=== PATIENT | female | born 2005 | race Two or more races ===

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

== ENCOUNTER 2023-06-10 17:18 | Emergency (ER) | payer MEDICAID ==
[~2023-06-10] VITALS: Ht 167.6 cm; Wt 61.1 kg
[2023-06-10 18:27] VITALS: RESP 18; O2SAT 99
[2023-06-10 19:11] VITALS: BP 108/56; PULSE 62
[2023-06-10 19:12] VITALS: TEMP 97.4
[2023-06-10] MEDS ORDERED: IBUPROFEN 800 MG TAB PO ONE (19:15)
== END 2023-06-10 19:14 | disposition home or self-care (01) ==
LOC: ER 17:18
DX: M67.432 Ganglion, left wrist (principal); J45.909 Unspecified asthma, uncomplicated; F12.10 Cannabis abuse, uncomplicated
CPT/HCPCS: 73130

== ENCOUNTER 2023-12-09 19:25 | Emergency (ER) | payer MEDICAID, OTHER ==
[~2023-12-09] VITALS: Ht 167.6 cm; Wt 65.9 kg
[2023-12-09 19:42] VITALS: BP 123/59; PULSE 74; RESP 15; O2SAT 100
[2023-12-10 08:12] LABS: Hepatitis B Surface Antibody Positive (Negative)
[2023-12-10 08:25] LABS: Hepatitis B Surface Antigen Negative (Negative)
== END 2023-12-09 23:40 | disposition home or self-care (01) ==
LOC: ER 19:25
DX: K08.89 Other specified disorders of teeth and supporting structures (principal); Z53.21 Procedure and treatment not carried out due to patient leaving prior to being seen by health care provider; Z20.6 Contact with and (suspected) exposure to human immunodeficiency virus [HIV]
CPT/HCPCS: 36415; 86703; 86706; 86803; 87340

== ENCOUNTER 2024-03-03 18:12 | Emergency (ER) | payer SELFPAY ==
[~2024-03-03] VITALS: Ht 167.6 cm; Wt 71.0 kg
[2024-03-03 18:36] VITALS: BP 118/55; PULSE 70; RESP 16; O2SAT 100
== END 2024-03-03 22:17 | disposition left against medical advice (07) ==
LOC: ER 18:12
DX: S61.231A Puncture wound without foreign body of left index finger without damage to nail, initial encounter (principal); Z53.21 Procedure and treatment not carried out due to patient leaving prior to being seen by health care provider; X58.XXXA Exposure to other specified factors, initial encounter; Y93.89 Activity, other specified; Y92.89 Other specified places as the place of occurrence of the external cause; Y99.8 Other external cause status

== ENCOUNTER 2024-03-05 16:15 | Emergency (ER) | payer OTHER ==
[~2024-03-05] VITALS: Ht 167.6 cm; Wt 69.8 kg
[2024-03-05 17:09] VITALS: BP 123/69; PULSE 70; RESP 14; TEMP 97.5; O2SAT 97
[2024-03-07 08:13] LABS: Hepatitis B Surface Antibody Positive (Negative)
[2024-03-07 08:25] LABS: Hepatitis B Surface Antigen Negative (Negative)
== END 2024-03-05 17:34 | disposition home or self-care (01) ==
LOC: ER 16:15
DX: S61.233A Puncture wound without foreign body of left middle finger without damage to nail, initial encounter (principal); J45.909 Unspecified asthma, uncomplicated; Z88.8 Allergy status to other drugs, medicaments and biological substances; W46.0XXA Contact with hypodermic needle, initial encounter; Y93.89 Activity, other specified; Y92.89 Other specified places as the place of occurrence of the external cause; Y99.8 Other external cause status
CPT/HCPCS: 36415; 86703; 86706; 86803; 87340

== ENCOUNTER 2024-05-23 01:56 | Emergency (ER) | payer MEDICAID, OTHER ==
[~2024-05-23] VITALS: Ht 165.1 cm; Wt 64.5 kg
[2024-05-23 02:43] LABS: Basophils # (auto) 0.1 10 ^3/uL (0-0.2); Basophils % (auto) 0.4 % (0.0-2.0); Eosinophils # (auto) 0 10 ^3/uL (0-0.8); Eosinophils % (auto) 0.3 % (0.0-7.0); Hematocrit 45.4 % (36.0-46.0); Hemoglobin 15.1 g/dL (12.2-16.2); Lymphocytes # (auto) 0.7 10 ^3/uL (0.4-5.4); Lymphocytes % (auto) 4.4 % (10.0-50.0); Mean Corpuscular Hemoglobin 27.5 pg (28.0-32.0); Mean Corpuscular Hgb Conc. 33.2 g/dL (32.0-36.0); Mean Corpuscular Volume 82.7 fL (80.0-100.0); Monocytes # (auto) 0.6 10 ^3/uL (0-1.3); Neutrophils # (auto) 13.9 10 ^3/uL (1.6-8.6); Neutrophils % (auto) 90.9 % (37.0-80.0); Red Blood Cells 5.49 10^6/uL (4.0-5.20); Red Cell Distribution Width 14.3 % (11.8-14.3); White Blood Cell 15.3 10^3/uL (4.4-10.8)
[2024-05-23] MEDS: SODIUM CHLORIDE 0.9% 1,000 ML IV ONE ×2 (02:46→03:46)
[2024-05-23] MEDS: PANTOPRAZOLE 40 MG/10 ML VIAL INJ IV ONE (02:46)
[2024-05-23] MEDS: ONDANSETRON HCL 4 MG/2 ML VIAL IV ONE (02:46)
[2024-05-23 03:03] LABS: Alanine Aminotransferase 18 U/L (7-40); Alkaline Phosphatase 73 U/L (46-116); Anion Gap 8 (5-15); Aspartate Aminotransferase 19 U/L (13-40); BUN/Creatinine Ratio 10.8 (10.0-20.0); Blood Urea Nitrogen 10 mg/dL (9-23); Calcium 10.7 mg/dL (8.7-10.4); Carbon Dioxide 23 mmol/L (20-30); Chloride 110 mmol/L (98-107); Glucose 123 mg/dL (74-106); Potassium 4.2 mmol/L (3.5-5.1); Sodium 141 mmol/L (136-145)
[2024-05-23 03:04] LABS: Albumin 5.3 g/dL (3.2-4.8); Bilirubin, Total 0.8 mg/dL (0.2-1.0); Total Protein 8.4 g/dL (5.7-8.2)
[2024-05-23 03:17] LABS: Urine Bacteria FEW /hpf (None Seen); Urine Blood 3+ /uL (Negative); Urine Clarity Turbid (Clear); Urine Color Yellow (Yellow); Urine Hyaline Cast FEW /lpf (0 - 2); Urine Mucus FEW (None Seen); Urine Protein, UAD 2+ (Negative); Urine Specific Gravity 1.039 (1.001-1.035); Urine Urobilinogen 3 mg/dL (Negative); Urine WBC 66 /hpf (0 - 5); Urine pH 5.5 (5.0-9.0)
[2024-05-23 03:40] VITALS: BP 97/59; TEMP 98.6
[2024-05-23 03:43] VITALS: PULSE 64; RESP 18; O2SAT 99
[2024-05-23] MEDS: METOCLOPRAMIDE HCL 5MG/ml INJ 2ml VIAL IV ONE (03:48)
[2024-05-23] MEDS ORDERED: ZOFR4T PO (04:19)
[2024-05-23] MEDS ORDERED: NITR-87 PO (04:19)
[2024-05-23] MEDS: NITROFURANTOIN 100 mg CAP PO ONE (04:38)
== END 2024-05-23 04:39 | disposition home or self-care (01) ==
LOC: ER 01:56
DX: K52.9 Noninfective gastroenteritis and colitis, unspecified (principal); N39.0 Urinary tract infection, site not specified; J45.909 Unspecified asthma, uncomplicated; Z88.1 Allergy status to other antibiotic agents
CPT/HCPCS: 36415; 80053; 81001; 81025; 85025; 96361; 96374; 96375; 99284; J2405; J2765; J7030

== ENCOUNTER 2024-05-25 11:59 | Emergency (ER) | payer MEDICAID ==
[~2024-05-25] VITALS: Ht 165.1 cm; Wt 64.6 kg
[~2024-05-25 11:59] MED LIST: NITR-87 PO; ZOFR4T PO
[2024-05-25 12:27] VITALS: BP 114/59; PULSE 77; RESP 16; O2SAT 100
[2024-05-26] MEDS ORDERED: CIPR-173 PO (23:06)
[2024-05-26] MEDS ORDERED: METO-281 PO (23:06)
== END 2024-05-25 18:07 | disposition left against medical advice (07) ==
LOC: ER 11:59
DX: R10.84 Generalized abdominal pain (principal); R11.2 Nausea with vomiting, unspecified; Z53.21 Procedure and treatment not carried out due to patient leaving prior to being seen by health care provider

== ENCOUNTER 2024-05-26 17:21 | Emergency (ER) | payer SELFPAY ==
[~2024-05-26] VITALS: Ht 165.1 cm; Wt 64.6 kg
[2024-05-26] MEDS ORDERED: cefTRIAXone 2GM/50ML D5W 50 ML IV ONE (20:00)
[2024-05-26 20:55] LABS: Basophils # (auto) 0 10 ^3/uL (0-0.2); Basophils % (auto) 0.4 % (0.0-2.0); Eosinophils # (auto) 0 10 ^3/uL (0-0.8); Eosinophils % (auto) 0.6 % (0.0-7.0); Hematocrit 44.2 % (36.0-46.0); Hemoglobin 14.5 g/dL (12.2-16.2); Lymphocytes # (auto) 1.7 10 ^3/uL (0.4-5.4); Lymphocytes % (auto) 26.3 % (10.0-50.0); Mean Corpuscular Hgb Conc. 32.8 g/dL (32.0-36.0); Mean Corpuscular Volume 82.5 fL (80.0-100.0); Monocytes # (auto) 0.7 10 ^3/uL (0-1.3); Monocytes % (auto) 10.8 % (0.0-12.0); Neutrophils # (auto) 4.1 10 ^3/uL (1.6-8.6); Neutrophils % (auto) 61.9 % (37.0-80.0); Nucleated Red Blood Cells % 0.1 %; Red Blood Cells 5.36 10^6/uL (4.0-5.20); Red Cell Distribution Width 14.5 % (11.8-14.3); White Blood Cell 6.6 10^3/uL (4.4-10.8)
[2024-05-26 21:12] LABS: Alanine Aminotransferase 15 U/L (7-40); Albumin 4.9 g/dL (3.2-4.8); Alkaline Phosphatase 64 U/L (46-116); Anion Gap 10 (5-15); Aspartate Aminotransferase 14 U/L (13-40); BUN/Creatinine Ratio 10.1 (10.0-20.0); Blood Urea Nitrogen 8 mg/dL (9-23); Calcium 10.1 mg/dL (8.7-10.4); Carbon Dioxide 24 mmol/L (20-30); Chloride 107 mmol/L (98-107); Glucose 90 mg/dL (74-106); Lipase 68 U/L (12-53); Sodium 141 mmol/L (136-145)
[2024-05-26 21:13] LABS: Bilirubin, Total 0.6 mg/dL (0.2-1.0); Total Protein 7.7 g/dL (5.7-8.2)
[2024-05-26] MEDS: SODIUM CHLORIDE 0.9% 1,000 ML IV ONE (21:27)
[2024-05-26] MEDS: FAMOTIDINE (10MG/ML) 2ML VL IV ONE (22:47)
[2024-05-26] MEDS: ONDANSETRON HCL 4 MG/2 ML VIAL IV ONE (22:47)
[2024-05-26] MEDS: levoFLOXacin 500MG 100 ML IV ONE (22:48)
[2024-05-26] MEDS ORDERED: METO-281 PO (23:06)
[2024-05-26] MEDS ORDERED: CIPR-173 PO (23:06)
[2024-05-27 00:21] VITALS: BP 112/63; PULSE 72; RESP 18; TEMP 98; O2SAT 99
== END 2024-05-27 00:23 | disposition home or self-care (01) ==
LOC: ER 17:21
DX: N39.0 Urinary tract infection, site not specified (principal); R10.2 Pelvic and perineal pain; R11.2 Nausea with vomiting, unspecified; E86.0 Dehydration; J45.909 Unspecified asthma, uncomplicated; Z88.6 Allergy status to analgesic agent
CPT/HCPCS: 36415; 76705; 80053; 83690; 84702; 85025; 96361; 96365; 96375; 99285; J0696; J1956; J2405; J3490; J7030

== ENCOUNTER 2024-11-22 02:17 | Emergency (ER) | payer SELFPAY ==
[~2024-11-22] VITALS: Ht 167.6 cm; Wt 66.5 kg
[~2024-11-22 02:17] MED LIST changes: +CIPR-173 PO; +METO-281 PO
[2024-11-22 02:39] VITALS: BP 139/67; PULSE 72; RESP 16; TEMP 97.5; O2SAT 99
[2024-11-22] MEDS ORDERED: AMOX875T4 PO (04:22)
[2024-11-22] MEDS ORDERED: ALBUAER3 IN (04:22)
[2024-11-22] MEDS ORDERED: PRED20TA2 PO (04:22)
--- NOTE | 2024-11-22 04:22 | ED.PDOC ---
SOB-HPI HPI Comments 19-YEAR-OLD FEMALE PRESENTS TO ER WITH COMPLAINTS OF COUGH X4 DAYS. PATIENT WITH PAST MEDICAL HISTORY SIGNIFICANT FOR ASTHMA REPORTS THAT SHE HAS BEEN EXPERIENCING A PRODUCTIVE COUGH WITH GREEN PHLEGM AND CONGESTION X4 DAYS. REPORTS THAT SHE RECENTLY RAN OUT OF HER ALBUTEROL INHALER AND HAS BEEN USING HER MOM'S ALBUTEROL NEBULIZER WITHOUT ANY RELIEF. DENIES ANY PAIN. PATIENT PRESENTS TO ER AMBULATORY ON ARRIVAL, WITH STEADY GAIT, IN NO DISTRESS. DENIES FEVER, SHORTNESS OF BREATH, CHEST PAIN, HEMOPTYSIS OR ANY FURTHER SYMPTOMS/COMPLAINTS Chief Complaint: Asthma Time Seen by MD: 02:45 Primary Care Provider: NONE Reviewed notes: Nurses Notes, Medications, Allergies Information Source: Patient Mode of Arrival: Ambulatory Past Medical History PAST MEDICAL HISTORY: Asthma Surgical History: Denies all surgeries ENVIRONMENTAL HEALTH NURSE History: No Pertinent ENVIRONMENTAL HEALTH NURSE History Family History Family History: Unknown Social History Smoker: Non-Smoker Alcohol: Denies ETOH Use Drugs: Denies Drug Use Lives In: Home Constitutional: denies: chills, diaphoresis, fatigue, fever, malaise, sweats, weakness, others EENTM: reports: others ( STATED IN HPI) Respiratory: reports: others ( STATED IN HPI) Cardiovascular: denies: chest pain, dizzy spells, diaphoresis, Dyspnea on exertion, edema, irregular heart beat, left arm pain, lightheadedness, palpitations, PND, syncope, others Gastrointestinal: denies: abdomen distended, abdominal pain, blood streaked bowels, constipated, diarrhea, dysphagia, difficulty swallowing, hematemesis, melena, nausea, poor appetite, poor fluid intake, rectal bleeding, rectal pain, vomiting, others Genitourinary: denies: abnormal vagina bleeding, burning, dyspareunia, dysuria, flank pain, frequency, hematuria, incontinence, pain, , vagina discharge, urgency, others Neurological: denies: dizziness, fainting, headache, left sided numbness, left sided weakness, numbness, paresthesia, pre-existing deficit, right sided numbness, right sided weakness, seizure, speech problems, tingling, tremors, weakness, others Musculoskeletal: denies: back pain, gout, joint pain, joint swelling, muscle pain, muscle stiffness, neck pain, others Integumetry: denies: bruises, change in color, change in hair/nails, dryness, laceration, lesions, lumps, rash, wounds, others Allergic/Immunocompromised: denies: Difficulty Healing, Frequent Infections, Hives, Itching, others Hematologic/Lymphatic: denies: anemia, blood clots, easy bleeding, easy bruising, swollen glands, others Endocrine: denies: excessive hunger, excessive sweating, excessive thirst, excessive urination, flushing, intolerance to cold, intolerance to heat, unexplained weight gain, unexplained weight loss, others Psychiatric: denies: anxiety, bipolar disorder, depression, hopeless, panic disorder, schizophrenia, sleepless, suicidal, others Physical Exam General Appearance: No Apparent Distress, Normal HEENT: Normal ENT Inspection, PERRL/EOMI, Pharynx Normal, TMs Normal Neck: Full Range of Motion, Non-Tender, Normal Respiratory: Chest Non-Tender, Lungs Clear, No Accessory Muscle Use, No Respiratory Distress, Normal Breath Sounds Cardiovascular: No Murmur, No Gallop, Regular Rate/Rhythm Breast Exam: Deferred Gastrointestinal: Non Tender, No Pulsatile Mass, Soft Genitalia: Deferred Pelvic: Deferred Rectal: Deferred Extremities: Normal capillary refill, Normal range of motion Neurologic: Alert, No Motor Deficits, Normal Affect, Normal Mood, No Sensory Deficits Cerebellar Function: Normal Reflexes: Normal Skin: Dry, Normal Color, Warm Peripheral Pulses: 2+ Radial (R), 2+ Radial (L), 2+ Brachial (R), 2+ Brachial (L) Lymphatic: No Adenopathy Was a procedure done? Was a procedure done?: No Sedation Sedation?: No Differential Dx Differential Diagnosis: Pneumonia, Pulmonary Embolism, Respiratory Distress, Pharyngitis X-Ray, Labs, Meds, VS Vital Signs Date Time Temp Pulse Resp B/P (MAP) Pulse Ox O2 Delivery O2 Flow Rate FiO2 11/22/24 02:39 97.5 72 16 139/67 (91) 99 11/22/24 02:39 99 Room Air* 0 21 ROCEPHIN 1 G IM ORDERED SOLU-MEDROL 125 MG IM ORDERED PATIENT HAD IMPROVEMENT IN SYMPTOMS AND IN NO DISTRESS PRIOR TO DISCHARGE ADVISED TO DRINK PLENTY OF FLUIDS ADVISED TO FOLLOW UP WITH PCP IN 1-2 DAYS PATIENT VERBALIZED UNDERSTANDING AND AGREEABLE WITH CURRENT PLAN OF CARE ADVISED TO RETURN TO ER IMMEDIATELY IF SYMPTOMS WORSEN Time of 1ST Reevaluation: 04:00 Reevaluation 1ST: N/A Time of 2ND Reevaluation: 04:20 Patient Education/Counseling: Diagnosis, Treatment, Prognosis, Need For Follow Up Family Education/Counseling: No Family Present Departure 1 Departure Time of Disposition: 04:22 Impression: Primary Impression: Upper respiratory infection Qualified Codes: J06.9 - Acute upper respiratory infection, unspecified Disposition: 01 HOME / SELF CARE / HOMELESS Condition: Stable e-Prescriptions Albuterol Sulfate (VENTOLIN MDI) 90 Mcg Ih 2 PUFF IN Q4HPRN, #1 INH 0 Refills Prov: MANE DELCID 11/22/24 Prednisone (Prednisone) 20 Mg Tab 20 MG PO BID for 5 Days, #10 TAB 0 Refills Prov: MANE DELCID 11/22/24 Amoxicillin & Pot Clavulanate (Amoxicillin/Potassium Cla) 875 Mg Tab 1 TAB PO BID for 7 Days, #14 TAB 0 Refills Prov: MANE DELCID 11/22/24 Discharged With: Self Critical Care Note Critical Care Time?: No Stability Stability form required: No Heart Score Heart Score: Heart Score Response (Comments) Value History N/A 0 EKG N/A 0 Age N/A 0 Risk Factors N/A 0 Troponin N/A 0 Total 0 MANE DELCID Nov 22, 2024 04:22
[2024-11-22] MEDS: cefTRIAXone SOD 1,000 MG VL IM ONE (04:38)
[2024-11-22] MEDS: methylPREDNISolone SOD SUCC 125 MG/2 ML VL IM ONE (04:39)
== END 2024-11-22 05:00 | disposition home or self-care (01) ==
LOC: ER 02:17
DX: J06.9 Acute upper respiratory infection, unspecified (principal); J45.909 Unspecified asthma, uncomplicated
CPT/HCPCS: 96372; 99284; J0696; J2919